=== PATIENT | female | born 1955 | race Caucasian/White ===

== ENCOUNTER 2021-03-01 06:43 | Day surgery (SDC) | payer MEDICARE, OTHER ==
[~2021-03-01] VITALS: Ht 172.7 cm; Wt 69.9 kg
[~2021-03-01 06:43] MED LIST: ROSU1TAB13 PO
[2021-03-01] MEDS ORDERED: LIDOCAINE 2%HCL (LOCAL ANESTH.) INJ 20ML MDV ONE (08:58)
[2021-03-01] MEDS ORDERED: IODIXANOL 320MG/ML 100ML BTL IV ONE (08:58)
[2021-03-01] MEDS ORDERED: ANGIOMAX 250 MG VIAL IV ONE (09:04)
[2021-03-01] MEDS ORDERED: fentaNYL CITRATE 100 MCG/2 ML VL ONE (09:05)
[2021-03-01] MEDS ORDERED: HEPARIN SODIUM (PORCINE) 5000 UNITS/ML 1ML VIAL ONE (09:05)
[2021-03-01] MEDS ORDERED: SODIUM CHL 0.9% 0 ML ONE (09:05)
[2021-03-01] MEDS ORDERED: VERAPAMIL 2.5MG/ML INJ 2ML VIAL IV ONE (09:05)
[2021-03-01] MEDS ORDERED: MIDAZOLAM HCL 1MG/1ML-2 ML VIAL ONE (09:05)
[2021-03-01] MEDS ORDERED: ATROPINE SULF 1 MG/10ml SYR ONE (09:33)
[2021-03-01] MEDS ORDERED: EPINEPHrine HCL 1 MG/10 ML SYRG ONE (09:35)
[2021-03-01] MEDS ORDERED: DOPamine 1600MCG/ML D5W 0 ML IV ONE (09:36)
[2021-03-01] MEDS ORDERED: ACETAMINOPHEN 500 MG TAB PO PRN (10:00)
[2021-03-01] MEDS ORDERED: HYDROcodone-ACET 5/325MG TAB PO PRN (10:00)
[2021-03-01] MEDS ORDERED: SODIUM CHLORIDE 0.9% 1,000 ML IV SCH (10:00)
[2021-03-01] MEDS ORDERED: ONDANSETRON HCL 4 MG/2 ML VIAL IV PRN (10:00)
== END 2021-03-01 13:01 | disposition home or self-care (01) ==
LOC: CATH 06:43
PROVIDERS: ATTEND Internal Medicine
DX: R94.39 Abnormal result of other cardiovascular function study (principal); I25.118 Atherosclerotic heart disease of native coronary artery with other forms of angina pectoris; E78.5 Hyperlipidemia, unspecified; Z20.822 Contact with and (suspected) exposure to COVID-19; Z98.890 Other specified postprocedural states; Z79.899 Other long term (current) drug therapy; Z88.8 Allergy status to other drugs, medicaments and biological substances
CPT/HCPCS: 93454; C1769; C1887; C1894; J1644; J2250; J3010; J7030; Q9967; U0003; 99152